=== PATIENT | male | born 1995 | race Caucasian/White ===

== ENCOUNTER 2019-01-24 13:50 | Emergency (ER) | payer OTHER ==
[~2019-01-24] VITALS: Ht 177.8 cm; Wt 75.0 kg
[2019-01-24 15:17] LABS: BASOPHILS # (AUTO) 0.1 X10'3 (0-0.2); BASOPHILS % (AUTO) 0.5 % (0-1); EOSINOPHILS # (AUTO) 0.1 X10'3 (0-0.9); EOSINOPHILS % (AUTO) 0.7 % (0-6); HEMATOCRIT 42.1 % (42.0-52.0); HEMOGLOBIN 14.2 g/dl (14.0-17.9); LYMPHOCYTES # (AUTO) 1.7 X10'3 (1.1-4.8); LYMPHOCYTES % (AUTO) 16.7 % (21-51); MEAN CORPUSCULAR HEMOGLOBIN 29.6 PG (27.0-31.0); MEAN CORPUSCULAR HGB CONC 33.6 g/dL (33.0-36.5); MEAN PLATELET VOLUME 8.7 FL (7.4-10.4); MONOCYTES # (AUTO) 0.6 X10'3 (0-0.9); MONOCYTES % (AUTO) 5.9 % (2-12); NEUTROPHILS # (AUTO) 7.6 X10'3 (1.8-7.7); NEUTROPHILS % (AUTO) 76.2 % (42-75); PLATELET COUNT 207 X10'3 (140-440); RED BLOOD COUNT 4.79 X10'6 (4.70-6.10); WHITE BLOOD COUNT 9.9 X10'3 (4.5-11.0)
[2019-01-24 15:32] LABS: ALANINE AMINOTRANSFERASE 28 U/L (12-78); ALBUMIN 4.3 G/DL (3.4-5.0); ALBUMIN/GLOBULIN RATIO 1.1 (1.1-1.5); ALKALINE PHOSPHATASE 107 IU/L (46-116); ANION GAP 10 (8-16); ASPARTATE AMINO TRANSFERASE 24 U/L (10-37); BILIRUBIN,TOTAL 1.1 MG/DL (0.1-1.0); BLOOD UREA NITROGEN 22 MG/DL (7-18); BUN/CREATININE RATIO 19.8 (5.4-32.0); CALCIUM 9.2 MG/DL (8.5-10.1); CHLORIDE 104 MMOL/L (99-107); CREATININE 1.11 MG/DL (0.60-1.10); GLUCOSE 69 MG/DL (70-104); POTASSIUM 4.2 MMOL/L (3.5-5.1); SODIUM 141 MMOL/L (135-145); TOTAL CARBON DIOXIDE 27.3 MMOL/L (24-32); TOTAL PROTEIN 8.2 G/DL (6.4-8.2); eGFR 81 ML/MIN
[2019-01-24 15:40] LABS: ETHANOL < 0.010 GM/DL (0.0-0.010)
[2019-01-24 15:56] LABS: CLARITY,URINE CLEAR (Clear); COLOR,URINE YELLOW (Yellow); GLUCOSE, URINE NEGATIVE (Neg); KETONES,URINE 40 mg/dl (Neg); LEUKOCYTE ESTERASE ,URINE NEGATIVE (Neg); NITRITES, URINE NEGATIVE (Neg); OCCULT BLOOD,URINE NEGATIVE (Neg); PROTEIN,URINE TRACE mg/dl (Neg); UROBILINOGEN,URINE 0.2 E.U/dL (0.2-1.0)
[2019-01-24 16:06] LABS: URINE AMPHETAMINE SCREEN NEGATIVE (Neg); URINE BARBITUATE SCREEN NEGATIVE (Neg); URINE BENZODIAZEPINES SCREEN NEGATIVE (Neg); URINE CANNABINOID SCREEN POSITIVE (Neg); URINE COCAINE SCREEN NEGATIVE (Neg); URINE METHADONE SCREEN NEGATIVE (Neg); URINE OPIATE SCREEN NEGATIVE (Neg); URINE PHENCYCLIDINE SCREEN NEGATIVE (Neg)
[2019-01-24 16:15] LABS: UA COLLECTION TYPE CLN CATCH MIDSTREAM
[2019-01-24 16:34] LABS: SQUAMOUS EPITHELIAL CELL,UR FEW /LPF (FEW)
[2019-01-24 16:35] LABS: WBC,URINE 0-4 /HPF (0-4)
[2019-01-24 16:36] LABS: BACTERIA,URINE FEW /HPF (Neg)
[2019-01-24 16:40] LABS: RBC,URINE NONE SEEN /HPF (0-2)
[2019-01-24 16:43] LABS: TRANSITIONAL EPI CELLS,URINE FEW /HPF
--- NOTE | 2019-01-24 19:42 | NUR ---
TELEPSYCH CALLED FOR CONSULT
--- NOTE | 2019-01-24 20:21 | NUR ---
DR. FITZGERALD TELEPSYCH CALLED. REPORT GIVEN. WILL BE CONTACTING PT ON [facility].
--- NOTE | 2019-01-24 21:20 | NUR ---
telepsych with pt completed by dr. hernandez
--- NOTE | 2019-01-24 21:42 | NUR ---
The patient was transferred to bed 22. He was made aware of unit routine and rules. He appears depressed and despondant. Stated he has been feeling paranoid that he is being watched and followed. He believes there are cameras in his home. He believes his food is being tampered with at times. Reports "seeing and hearing signs" Reports a voice saying "get out. go" He also reports getting messages from the TV. He reports a family history of schizophrenia in his paternal grandmother and his mother has bipolor disorder.
[2019-01-24] MEDS ORDERED: OLANZapine 2.5MG tablet PO SCH (22:30)
--- NOTE | 2019-01-24 22:37 | NUR ---
Discussed telepsych report with Mc VILLEGAS and Zyprexa 5 mg po given to the patient. He is quiet and guarded but has been cooperative.
--- NOTE | 2019-01-25 00:44 | NUR ---
The patient appears to be asleep at this time
--- NOTE | 2019-01-25 02:54 | NUR ---
The patient appears to be asleep
--- NOTE | 2019-01-25 04:26 | NUR ---
The patient appears to be sleeping at this time
[2019-01-25 05:46] VITALS: BP 142/65
[2019-01-25] MEDS ORDERED: HYDR-3927 PO (11:00)
[2019-01-25] MEDS ORDERED: PRAZ5CAP PO (11:01)
[2019-01-25] MEDS ORDERED: SERT25TA PO (11:03)
[2019-01-25] MEDS ORDERED: OLANZapine 2.5MG tablet PO SCH (21:00)
== END 2019-01-25 14:11 ==
LOC: ER 13:52
DX: T14.91XA Suicide attempt, initial encounter (principal); T43.592A Poisoning by other antipsychotics and neuroleptics, intentional self-harm, initial encounter; T43.222A Poisoning by selective serotonin reuptake inhibitors, intentional self-harm, initial encounter; F31.9 Bipolar disorder, unspecified; Z56.0 Unemployment, unspecified; Y92.89 Other specified places as the place of occurrence of the external cause
CPT/HCPCS: 36415; 80053; 80305; 80320; 81001; 84443; 85025; 99285

== ENCOUNTER 2019-01-25 11:00 | Inpatient (IN) | payer SELFPAY ==
[~2019-01-25] VITALS: Ht 177.8 cm; Wt 70.3 kg
[~2019-01-25 11:00] MED LIST: HYDR-3927 PO
[2019-01-25] MEDS ORDERED: PRAZ5CAP PO (11:01)
[2019-01-25] MEDS ORDERED: SERT25TA PO (11:03)
--- NOTE | 2019-01-25 14:45 | NUR ---
Admit Note: 1445 Pt presented to ER after ingesting 40-50 pills of sertraline and Vistaril depressed and quiet he was unable to contract for safety. History of bipolar and questionable schizophrenia. Pt has been seen by Dr. Boland in the community and was seen at [facility]. Pt brought to the unit upset expecting to be discharged and go home. Pt required security and therapeutic interventions for approximately an hour before agreeing to take oral medicine. Property inventoried with bernardo counted by RAMON Hall and RAMON Eli. Pt. placed in rm #[id number] after taking a shower. Pt later apologized to staff for his behavior.
[2019-01-25] MEDS ORDERED: haloperidol lactate 5mg/ml inj ONE (15:20)
[2019-01-25] MEDS ORDERED: diphenhydrAMINE 50 mg/ml inj ONE (15:21)
[2019-01-25] MEDS ORDERED: haloperidol lactate 5mg/ml inj IM ONE (15:25)
[2019-01-25] MEDS ORDERED: diphenhydrAMINE 50 mg/ml inj IM ONE (15:25)
[2019-01-25] MEDS ORDERED: LORazepam 2 mg/ml vial IM ONE (15:25)
[2019-01-25] MEDS ORDERED: LORazepam 1 MG tablet PO PRN (15:35)
[2019-01-25] MEDS: LORazepam 1 MG tablet PO PRN ×2 (15:53→21:19)
[2019-01-25] MEDS: haloperidol 5mg tablet PO PRN ×2 (15:53→21:19)
[2019-01-25] MEDS: diphenhydrAMINE 25mg capsule PO PRN ×2 (15:53→21:19)
[2019-01-25] MEDS ORDERED: acetaminophen 325mg tablet PO PRN ×2 (16:00)
[2019-01-25] MEDS ORDERED: mag hydrox/Alum hydrox/simeth 30ml oral suspension PO PRN (16:00)
[2019-01-25] MEDS ORDERED: magnesium hydroxide 30ml (MOM) UD suspension PO PRN (16:00)
[2019-01-25] MEDS ORDERED: tuberculin, purif. prot. deriv. 5 units/0.1ml ID ONE (16:15)
[2019-01-25 17:25] LABS: HEMOGLOBIN A1C 5.7 % (4.5-6.2)
[2019-01-25 17:41] LABS: CHOL/HDL RATIO 2.2 (0.00-4.99); CHOLESTEROL 167 MG/DL (0-200); HDL CHOLESTEROL 76 MG/DL (35-60); LDL CHOLESTEROL 82 MG/DL (50-100); TRIGLYCERIDES 34 MG/DL (20-135)
[2019-01-25] MEDS ORDERED: NICOTINE POLACRILEX 2 MG LOZENGE MM PRN (17:55)
[2019-01-25] MEDS: nicotine 21mg patch - 24 hr TD SCH (18:36)
[2019-01-25] MEDS: NICOTINE POLACRILEX 2 MG LOZENGE MM PRN (19:59)
[2019-01-25 20:00] VITALS: BP 137/68
--- NOTE | 2019-01-26 02:48 | NUR ---
RN Progress Note: Legal hold: 5150 Client on involuntary status for competency. Report received from JESE Stein with use of SBAR Why are they here: Pt presented to ER after ingesting 40-50 pills of sertraline and Vistaril depressed and quiet he was unable to contract for safety. History of bipolar and questionable schizophrenia. Pt has been seen by Dr. Boland in the community and was seen at [facility]. Assessment Patient was up in the unit at the change of shift. He was witnessed interacting with other patients and watching TV. Met patient in his room for a 1:1 assessment. He denied current SI/HI. He stated he was calm and that he was upset earlier because he did not realize he was going to have to stay on the unit. He explained to staff that when he gets upset that his number one way to release agitation is physical activity. He expressed that he likes to work out and keep healthy. He was cooperative to finish his Crisis Intervention Plan and his MRSA swab. No violence or aggression noted this shift. He was able to approach staff this shift and request medications when he started getting anxious/agitated. S/I, H/I: Denies A/VH: Denies Sleep: Currently sleeping, see sleep assessment ADL's: Independent. Group attendance: None this shift Were meds taken: Yes Any med S/E: None noted Mental Status Exam Appearance: Neat, clean Eye contact: Good Behavior: Interacted with staff and patients appropriately Speech: Normal rate, volume, and rhythm Mood: Calm Affect: Congruent to mood Thought process: Linear Thought Content: Expressed his frustration, then explained he was okay now. Cognition: A/Ox 4 Insight: Fair Judgment: Poor Interventions PRN's used: Ativan, Haldol, Benadryl Therapeutic interventions: 1:1 assessment with patient, provided active listening, maintained a safe and therapeutic environment to help establish rapport. Provided positive reinforcement. Medication administration and education. Maintained Q 15 minute checks for safety. Justification of Continued Inpatient. Pt has poor judgment and is a danger to himself, he requires medication management and a therapeutic milieu to interrupt current crisis. Without intervention he is at risk for readmission.
[2019-01-26 08:04] VITALS: BP 119/59
[2019-01-26] MEDS: nicotine 21mg patch - 24 hr TD SCH (08:27)
[2019-01-26] MEDS ORDERED: venlafaxine XR 37.5mg cap (Q24H) PO ONE (09:25)
--- NOTE | 2019-01-26 10:16 | NUR ---
Malnutrition consult: Pt currently on a regular diet with documented PO intake 100% meeting nutrient needs. Unable to obtain wt hx d/t pt with no previous documented visits. Per physical assessment pt agitated and anxious. No H&P at this time. Pt with no documented edema or decrease in muscle strength. Pt currently does not meet criteria for malnutrition. Will continue to follow and monitor qualifying criteria for malnutrition. Addendum: 01/26/19 at [address] Amended: Links added.
[2019-01-26] MEDS: NICOTINE POLACRILEX 2 MG LOZENGE MM PRN ×2 (13:40→21:11)
--- NOTE | 2019-01-26 13:43 | NUR ---
RN Progress Note: Legal hold: 5150 Client on involuntary status for DTS Report received from JESE Wilkes with use of SBAR Why are they here: Pt presented to ER after ingesting 40-50 pills of sertraline and Vistaril depressed and quiet he was unable to contract for safety. History of bipolar and questionable schizophrenia. Pt has been seen by Dr. Boland in the community and was seen at [facility]. Assessment What happened this shift: The patient was asleep at change of shift. He got up for breakfast and was medication compliant. he attended all groups and was seen by Dr. Forrester. The patient admits to feeling depressed but denies anxiety today. He states he is happy to be here and getting the help he needs. He is having AH's however, not as "bad as in the past." States he hears a sentence with some words louder than others. And now, at lunchtime he is hearing no voices at all. He states what is bothering him are "the cameras in my house, and that is a real big problem, I know they are real and there." Reports he likes living with his sister as she "takes good care of me and helps me." The patient in calm, cooperative and polite with staff today. He denies suicidal thoughts. S/I, H/I: Denies A/VH: AH's Sleep: Napped ADL's: Independent. Group attendance: yes x 2 Were meds taken: Yes Any med S/E: None noted Mental Status Exam Appearance: Neat, clean Eye contact: Good Behavior: Interacted with staff and patients appropriately Speech: Normal rate, volume, and rhythm Mood: Depressed Affect: Calm Thought process: Linear Thought Content: paranoid delusional (cameras in home) Cognition: A/Ox 4 Insight: Poor Judgment: Poor Interventions PRN's used: Boogie Delfina Therapeutic interventions: 1:1 assessment with patient, provided active listening, maintained a safe and therapeutic environment to help establish rapport. Provided positive reinforcement. Medication administration and education. Maintained Q 15 minute checks for safety. Justification of Continued Inpatient. Pt has poor judgment and is a danger to himself, he requires medication management and a therapeutic milieu to interrupt current crisis. Without intervention he is at risk for readmission.
[2019-01-26] MEDS ORDERED: lurasidone 20mg tablet PO SCH (18:00)
[2019-01-26 19:44] VITALS: BP 140/86
[2019-01-26] MEDS: prazosin 1mg capsule PO SCH (21:10)
--- NOTE | 2019-01-27 01:06 | NUR ---
RN Progress Note: Legal hold: 5150 Client on involuntary status for DTS Report received from JESE Echevarria with use of SBAR Why are they here: Pt presented to ER after ingesting 40-50 pills of sertraline and Vistaril depressed and quiet he was unable to contract for safety. History of bipolar and questionable schizophrenia. Pt has been seen by Dr. Boland in the community and was seen at [facility]. Assessment What happened this shift: Patient is up in the unit this evening enjoying unit milieu and interacting with other patients. He spent his time this evening in the group room playing card games with other patients. Hes cooperative for a 1:1 assessment at his bedside. He denies SI/HI, and states he is currently not having any AH. He does voice his concern about getting sleep, and requests that he get a sleeping medication to insure he gets rest this evening. Compliant with all evening medications. Turns to bed after taking HS meds. S/I, H/I: Denies A/VH: AH, denies hearing any this shift Sleep: Currently sleeping, see sleep assessment ADL's: Independent. Group attendance: No groups this shift Were meds taken: Yes Any med S/E: None noted Mental Status Exam Appearance: Neat, clean Eye contact: Good Behavior: Interacted with staff and patients appropriately Speech: Normal rate, volume, and rhythm Mood: Depressed Affect: Calm Thought process: Linear Thought Content: Worried about getting sleep, sleeping medications Cognition: A/Ox 4 Insight: Poor Judgment: Poor Interventions PRN's used: Nicotine Lozenge Therapeutic interventions: 1:1 assessment with patient, provided active listening, maintained a safe and therapeutic environment to help establish rapport. Provided positive reinforcement. Medication administration and education. Maintained Q 15 minute checks for safety. Justification of Continued Inpatient. Pt has poor judgment and is a danger to himself, he requires medication management and a therapeutic milieu to interrupt current crisis. Without intervention he is at risk for readmission.
[2019-01-27] MEDS: nicotine 21mg patch - 24 hr TD SCH (07:48)
[2019-01-27] MEDS: venlafaxine XR 75mg capsule (Q24H) PO SCH (07:48)
[2019-01-27 08:20] VITALS: BP 111/86
--- NOTE | 2019-01-27 12:58 | NUR ---
Progress Note: Legal hold: 5150 Client on involuntary status for DTS Report received from JESE Wilkes with use of SBAR Why are they here: Pt presented to ER after ingesting 40-50 pills of sertraline and Vistaril depressed and quiet he was unable to contract for safety. History of bipolar and questionable schizophrenia. Pt has been seen by Dr. Boland in the community and was seen at [facility]. Assessment What happened this shift: The patient was asleep at change of shift. Reported sleeping well with a dose of Prazosin. Denies hallucinations, positive for ideas of reference (cameras in his home). Medication compliant and doing well on unit, interacts well with others, goes to all groups. Naps at times. Denies suicidal thoughts. S/I, H/I: Denies A/VH: AH, denies hearing any this shift Sleep: Naps ADL's: Independent. Group attendance: yes Were meds taken: Yes Any med S/E: None noted Mental Status Exam Appearance: Neat, clean Eye contact: Good Behavior: Interacted with staff and patients appropriately Speech: Normal rate, volume, and rhythm Mood: Depressed Affect: Calm Thought process: Linear Thought Content: medications and getting helped Cognition: A/Ox 4 Insight: Poor Judgment: Poor Interventions PRN's used: None Therapeutic interventions: 1:1 assessment with patient, provided active listening, maintained a safe and therapeutic environment to help establish rapport. Provided positive reinforcement. Medication administration and education. Maintained Q 15 minute checks for safety. Justification of Continued Inpatient. Pt has poor judgment and is a danger to himself, he requires medication management and a therapeutic milieu to interrupt current crisis. Without intervention he is at risk for readmission.
[2019-01-27] MEDS: NICOTINE POLACRILEX 2 MG LOZENGE MM PRN (17:24)
[2019-01-27] MEDS: lurasidone 20mg tablet PO SCH (17:39)
[2019-01-27 19:00] VITALS: BP 141/77
[2019-01-27] MEDS: prazosin 1mg capsule PO SCH (20:35)
--- NOTE | 2019-01-28 00:33 | NUR ---
Progress Note: Legal hold: 5150 Client on involuntary status for DTS Report received from JESE Echevarria with use of SBAR Why are they here: Pt presented to ER after ingesting 40-50 pills of sertraline and Vistaril depressed and quiet he was unable to contract for safety. History of bipolar and questionable schizophrenia. Pt has been seen by Dr. Boland in the community and was seen at [facility]. Assessment What happened this shift: Patient is laying in bed at the lara of shift. His mother comes and visits him this evening and stays for all of visiting hours. Met with patient for a 1:1 assessment. He says his visit is good and that him and his Mom have an "okay" relationship "but we are working on it." He denies SI/HI, VH/AH and makes no paranoid or delusional statements this shift. He is noted to interact well with other patients. He takes all medications as ordered. S/I, H/I: Denies A/VH: AH, denies hearing any this shift Sleep: Currently sleeping, see sleep assessment ADL's: Independent. Group attendance: Yes Were meds taken: Yes Any med S/E: None noted Mental Status Exam Appearance: Neat, clean Eye contact: Good Behavior: Interacted with staff and patients appropriately Speech: Normal rate, volume, and rhythm Mood: Depressed Affect: Calm Thought process: Linear Thought Content: Medications and getting helped Cognition: A/Ox 4 Insight: Poor Judgment: Poor Interventions PRN's used: None Therapeutic interventions: 1:1 assessment with patient, provided active listening, maintained a safe and therapeutic environment to help establish rapport. Provided positive reinforcement. Monitored for self harm risk. Medication administration and education. Maintained Q 15 minute checks for safety. Justification of Continued Inpatient. Pt has poor judgment and is a danger to himself, he requires medication management and a therapeutic milieu to interrupt current crisis. Without intervention he is at risk for readmission.
[2019-01-28] MEDS: nicotine 21mg patch - 24 hr TD SCH (07:48)
[2019-01-28] MEDS: venlafaxine XR 75mg capsule (Q24H) PO SCH (07:49)
[2019-01-28 08:00] VITALS: BP 134/70
[2019-01-28] MEDS: NICOTINE POLACRILEX 2 MG LOZENGE MM PRN (13:21)
--- NOTE | 2019-01-28 17:12 | NUR ---
NURSING PROGRESS NOTE: Legal hold: None Client on Voluntary status Report received from JESE Wilkes with use of SBAR Why are they here: Pt presented to ER after ingesting 40-50 pills of sertraline and Vistaril depressed and quiet he was unable to contract for safety. History of bipolar and questionable schizophrenia. Pt has been seen by Dr. Boland in the community and was seen at [facility]. Assessment What happened this shift: The patient was asleep at change of shift. Reported sleeping well. Up to all meals and groups with others. Participating well in groups and interacting with peers. Eating well. Denies suicidal thoughts and denies having any paranoid thoughts about cameras in his home. States, "I think some of those paranoid thoughts were coming from the pot use." Patient stated his head feels clear, and the group work is challenging him to "see himself." No anxiety noted and went outside with others 3 times today. Mood is upbeat. Has spent time reading today. S/I, H/I: Denies A/VH: AH, Denies Sleep: None ADL's: Independent. Group attendance: yes Were meds taken: Yes Any med S/E: None noted Mental Status Exam Appearance: Neat, clean Eye contact: Good Behavior: Interacted with staff and patients appropriately Speech: Normal rate, volume, and rhythm Mood: Positive Affect: Calm Thought process: Linear Thought Content: medications and getting helped Cognition: A/Ox 4 Insight: Good Judgment: Good Interventions PRN's used: None Therapeutic interventions: 1:1 assessment with patient, provided active listening, maintained a safe and therapeutic environment to help establish rapport. Provided positive reinforcement. Medication administration and education. Maintained Q 15 minute checks for safety. Justification of Continued Inpatient. Pt has poor judgment and is a danger to himself, he requires medication management and a therapeutic milieu to interrupt current crisis. Without intervention he is at risk for readmission.
[2019-01-28] MEDS: lurasidone 20mg tablet PO SCH (17:35)
[2019-01-28 20:00] VITALS: BP 171/103
[2019-01-28] MEDS: prazosin 1mg capsule PO SCH (20:00)
[2019-01-28] MEDS ORDERED: LURA20TA PO (20:08)
[2019-01-28] MEDS ORDERED: PRAZ1CAP5 PO (20:08)
[2019-01-28] MEDS ORDERED: VENL75CA61 PO (20:08)
--- NOTE | 2019-01-28 23:27 | NUR ---
DC NOTE: The patient exited the unit at 2004. He ambulated, accompanied by RAMSEY Morris. The patient stated he would walk home because he lives real close on [address]. He had all his valuables that were inventoried, and his mood and affect were bright. There was no emotional or physical distress, and the patient believes all he had to do was get off marijuana. He has a follow up appointment at [facility]. He did not want to quit smoking.
== END 2019-01-28 20:35 | disposition home or self-care (01) | DRG 885 ==
LOC: ADULT MH 11:00
PROVIDERS: ADMIT Psychiatry & Neurology Psychiatry; ATTEND Psychiatry & Neurology Psychiatry
DX: F33.2 Major depressive disorder, recurrent severe without psychotic features (principal); F16.11 Hallucinogen abuse, in remission; F17.210 Nicotine dependence, cigarettes, uncomplicated; F29 Unspecified psychosis not due to a substance or known physiological condition; F12.19 Cannabis abuse with unspecified cannabis-induced disorder; F41.1 Generalized anxiety disorder; F25.9 Schizoaffective disorder, unspecified; G47.9 Sleep disorder, unspecified; T43.222A Poisoning by selective serotonin reuptake inhibitors, intentional self-harm, initial encounter; T43.592A Poisoning by other antipsychotics and neuroleptics, intentional self-harm, initial encounter; Y92.89 Other specified places as the place of occurrence of the external cause; Z79.899 Other long term (current) drug therapy
CPT/HCPCS: 36415; 80061; 83036; 84443; 87070; J1200; J1630; Q0163

== ENCOUNTER 2019-03-30 20:46 | Emergency (ER) | payer OTHER ==
[~2019-03-30] VITALS: Ht 177.8 cm; Wt 52.9 kg
[~2019-03-30 20:46] MED LIST changes: +LURA20TA PO; +PRAZ1CAP5 PO; +VENL75CA61 PO
--- NOTE | 2019-03-30 22:04 | NUR ---
Pt was BIB sister. She reports that Juanito has been off of his medications and has a history of bipolar, schizophrenia, and depression. On assessment pt states he is currently hearing voices that tell him to harm himself, but he will not give specifics. When asked if he is suicidal he states, "always" but will not answer anything further. He is quiet and cooperative, and lays still with his eyes closed.
[2019-03-30 22:06] LABS: ALANINE AMINOTRANSFERASE 29 U/L (12-78); ALBUMIN 4.4 G/DL (3.4-5.0); ALBUMIN/GLOBULIN RATIO 1.2 (1.1-1.5); ALKALINE PHOSPHATASE 110 IU/L (46-116); ANION GAP 10 (8-16); ASPARTATE AMINO TRANSFERASE 24 U/L (10-37); BASOPHILS # (AUTO) 0.1 X10'3 (0-0.2); BASOPHILS % (AUTO) 0.7 % (0-1); BILIRUBIN,TOTAL 0.9 MG/DL (0.1-1.0); BLOOD UREA NITROGEN 15 MG/DL (7-18); BUN/CREATININE RATIO 14.7 (5.4-32.0); CALCIUM 8.8 MG/DL (8.5-10.1); CHLORIDE 103 MMOL/L (99-107); CREATININE 1.02 MG/DL (0.60-1.10); EOSINOPHILS # (AUTO) 0.3 X10'3 (0-0.9); EOSINOPHILS % (AUTO) 2.9 % (0-6); GLUCOSE 93 MG/DL (70-104); HEMATOCRIT 41.9 % (42.0-52.0); HEMOGLOBIN 14.3 g/dl (14.0-17.9); LYMPHOCYTES # (AUTO) 2.2 X10'3 (1.1-4.8); LYMPHOCYTES % (AUTO) 22.3 % (21-51); MEAN CORPUSCULAR HEMOGLOBIN 30.6 PG (27.0-31.0); MEAN CORPUSCULAR HGB CONC 34.1 g/dL (33.0-36.5); MEAN CORPUSCULAR VOLUME 89.8 FL (78-98); MEAN PLATELET VOLUME 9.2 FL (7.4-10.4); MONOCYTES # (AUTO) 0.6 X10'3 (0-0.9); MONOCYTES % (AUTO) 6.1 % (2-12); NEUTROPHILS # (AUTO) 6.7 X10'3 (1.8-7.7); PLATELET COUNT 201 X10'3 (140-440); POTASSIUM 3.2 MMOL/L (3.5-5.1); RED BLOOD COUNT 4.67 X10'6 (4.70-6.10); RED CELL DISTRIBUTION WIDTH 13.1 % (11.5-14.5); SODIUM 140 MMOL/L (135-145); TOTAL CARBON DIOXIDE 26.6 MMOL/L (24-32); TOTAL PROTEIN 8.1 G/DL (6.4-8.2); WHITE BLOOD COUNT 9.9 X10'3 (4.5-11.0); eGFR 90 ML/MIN
[2019-03-30 22:15] LABS: ETHANOL < 0.010 GM/DL (0.0-0.010)
[2019-03-30] MEDS ORDERED: UNABLE TO OBTAIN (22:53)
--- NOTE | 2019-03-30 23:03 | NUR ---
Unable to obtain a current medication list from patient or his sister. Will call his pharmacy in the AM.
--- NOTE | 2019-03-31 01:00 | NUR ---
Pt requested food, a sandwhich, water, and juice were given to him, which he ate and drank. Pt went to sleep shortly after eating.
--- NOTE | 2019-03-31 03:00 | NUR ---
Pt used the restoom and returned to bed, fell back asleep on L side.
--- NOTE | 2019-03-31 05:00 | NUR ---
Pt awake after vitals being taken. Pt encouraged to try to urinate in specimen cup, pt verbalized understanding and is currently drinking water pitcher.
[2019-03-31 06:44] LABS: URINE AMPHETAMINE SCREEN NEGATIVE (Neg); URINE BARBITUATE SCREEN NEGATIVE (Neg); URINE BENZODIAZEPINES SCREEN NEGATIVE (Neg); URINE CANNABINOID SCREEN POSITIVE (Neg); URINE COCAINE SCREEN NEGATIVE (Neg); URINE METHADONE SCREEN NEGATIVE (Neg); URINE OPIATE SCREEN NEGATIVE (Neg); URINE PHENCYCLIDINE SCREEN NEGATIVE (Neg)
--- NOTE | 2019-03-31 09:00 | NUR ---
pT STATES HE DOES NOT TAKE ANY HOME MEDS. tHE LAST TIME HE TOOK MEDS WAS WHEN HE WAS HERE AT [facility] AN INPATIENT. Addendum: 03/31/19 at 0902 by [email or web address] WILL CHECK IF ABLE TO GET MED REC FROM [facility].
--- NOTE | 2019-03-31 19:30 | NUR ---
PATIENT IS SMILING AND STATES THAT HE "FEELS FINE NOW, BUT REALLY DOWN SOMETIMES""ROMANA BEEN OFF MY MEDS SINCE I WAS LAST HERE" PATIENT APPROPRIATE, POLITE AMBULATES WNL
[2019-03-31] MEDS: risperiDONE 2mg tablet PO SCH (21:25)
--- NOTE | 2019-03-31 21:31 | NUR ---
Pt up to bathroom to perform evening toilet; fresh scrubs given to pt.
--- NOTE | 2019-03-31 23:11 | NUR ---
PATIENT APPEARS TO BE SLEEPING: RR EVEN AND UNLABORED, ON HIS LEFT SIDE
--- NOTE | 2019-04-01 01:01 | NUR ---
PATIENT APPEARS TO BE SLEEPING LAYING ON BACK, RR EVEN UNLABORED
--- NOTE | 2019-04-01 03:12 | NUR ---
PATIENT APPEARS TO BE SLEEPING: RR EVEN UNLABORED LAYING ON RIGHT SIDE
--- NOTE | 2019-04-01 04:53 | NUR ---
PATIENT UP TO BATHROOM, SMILING, PROVIDED WARM BLANKET
--- NOTE | 2019-04-01 06:32 | NUR ---
Assumed care of client. Client is asleep on back in no apparent distress. Respirations are even and unlabored.
[2019-04-01] MEDS ORDERED: potassium Cl 20 mEq SR tablet PO ONE (08:00)
[2019-04-01] MEDS ORDERED: potassium Cl 20 mEq SR tablet PO SCH (08:00)
--- NOTE | 2019-04-01 08:01 | NUR ---
Client up to the bathroom
--- NOTE | 2019-04-01 10:15 | NUR ---
Pt continues to sleep on right side in no apparent distress. Respirations are even and unlabored.
--- NOTE | 2019-04-01 12:33 | NUR ---
Client awake and lying on his back
--- NOTE | 2019-04-01 13:08 | NUR ---
Client ate 100% of lunch
--- NOTE | 2019-04-01 13:51 | NUR ---
Elva Rod called and got report on client. They asked for medical clearance to be faxed and urinalysis to be completed. Order placed for urinalysis and waiting on sample.
[2019-04-01 16:19] LABS: CLARITY,URINE CLEAR (Clear); COLOR,URINE YELLOW (Yellow); GLUCOSE, URINE NEGATIVE (Neg); KETONES,URINE NEGATIVE (Neg); LEUKOCYTE ESTERASE ,URINE TRACE (Neg); NITRITES, URINE NEGATIVE (Neg); OCCULT BLOOD,URINE NEGATIVE (Neg); PROTEIN,URINE NEGATIVE (Neg); UROBILINOGEN,URINE 0.2 E.U/dL (0.2-1.0)
[2019-04-01 16:22] LABS: UA COLLECTION TYPE CLN CATCH MIDSTREAM
[2019-04-01 16:29] LABS: MUCUS STRANDS FEW /LPF (Neg); SQUAMOUS EPITHELIAL CELL,UR MODERATE /LPF (FEW)
[2019-04-01 16:32] LABS: BACTERIA,URINE FEW /HPF (Neg); RBC,URINE 0-2 /HPF (0-2); WBC,URINE 0-4 /HPF (0-4)
--- NOTE | 2019-04-01 18:30 | NUR ---
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
--- NOTE | 2019-04-01 19:14 | NUR ---
The patient is pacing back and forth directly if front of the nursing station. He stated that is helping him relax. One to one with the patient to assess for self harm risk and severity of his thought disorder. The patient denies that he is hearing voices but stated "It's just me responding to my enviroment" He believes that staff can read his mind and people giving him responses to what he is thinking. He denies that he has a mental illness and explained, "It's more of a mind thing" that people can read his mind through wave lengths and frequencies" He stated that is having racing thoughts "all the time" He denies being suicidal at this point but also admits to mood lability.
--- NOTE | 2019-04-01 20:08 | NUR ---
The patient is resting on his bed. At this time he is refusing his HS resperidal but stated that he might reconsider. Patient encouraged to take his medications.
[2019-04-01] MEDS: risperiDONE 2mg tablet PO SCH (21:00)
--- NOTE | 2019-04-01 21:43 | NUR ---
The patient appears to be awake and he continues to refuse his HS resperdal
--- NOTE | 2019-04-01 23:24 | NUR ---
The patient was once again offered his HS medications but he refused.
--- NOTE | 2019-04-02 00:13 | NUR ---
The patient appears to be sleeping
--- NOTE | 2019-04-02 02:45 | NUR ---
THe patient appears to be asleep
--- NOTE | 2019-04-02 04:44 | NUR ---
The patient appears to be sleeping
[2019-04-02 05:30] VITALS: BP 118/74
--- NOTE | 2019-04-02 08:06 | NUR ---
Patient out of bed ambulated independently to restroom, tolerated well. Patient returned to bed for breakfast.
--- NOTE | 2019-04-02 08:08 | NUR ---
Patient currently sleeping, chest rising and falling, breakfast tray on bedside table.
--- NOTE | 2019-04-02 08:58 | NUR ---
Patient refused K-Dur, states "I ate my banana from on my tray, I don't need it." Patient is up walking the room. No issues currently.
--- NOTE | 2019-04-02 09:18 | NUR ---
Patient unhappy that he is going to [facility]. He states that it didn't help last time and it won't help this time. Security at the bedside. Patient is calm but not happy. Will continue to monitor.
--- NOTE | 2019-04-02 09:38 | NUR ---
Patient walked out with security and [facility] equipment driver. New clothes obtained for patient. Patient took all belongings in patient belongings bag. Patient cooperative and calm while leaving facility.
--- NOTE | 2019-04-02 09:57 | NUR ---
Assessment will not save to patients chart, reviewed previous nurses findings and agree with assessment.
== END 2019-04-02 11:27 ==
LOC: ER 20:47
DX: F20.9 Schizophrenia, unspecified (principal); F31.9 Bipolar disorder, unspecified; R45.851 Suicidal ideations; Z56.0 Unemployment, unspecified; Z79.899 Other long term (current) drug therapy
CPT/HCPCS: 36415; 80053; 80305; 80320; 81001; 84443; 85025; 87088; 99285